=== PATIENT | male | born 1945 | race Caucasian/White ===

== ENCOUNTER 2019-01-04 09:12 | Outpatient (CLI) | payer MEDICARE, OTHER ==
--- NOTE | 2019-01-04 16:36 | Nuclear Medicine Report ---
Reason: EXERTIONAL FATIGUE Procedure Date: 01/04/2019 Accession Number: [id number] / [id number] Procedure: NM - Myocardial Perfusion STR/RST CPT Code: Final Report FULL RESULT: EXAM: MYOCARDIAL PERFUSION STRESS AND REST EXAM DATE: 01/04/2019 03:58 PM. CLINICAL HISTORY: EXERTIONAL FATIGUE. COMPARISON: None. TECHNIQUE: Patient given 9.8 mCi technetium 99m sestamibi IV for the rest portion of the study. Non-gated cardiac SPECT scintigraphy performed with multiplanar reformats. After an appropriate delay, patient exercised on a Fish treadmill protocol for 6 minutes 49 seconds, achieving 86% of maximum predicted heart rate. Near peak stress, patient given 43.3 mCi technetium 99m sestamibi IV. Cardiac gated SPECT scintigraphy of the heart performed with multiplanar reformats, wall motion analysis, and left ventricular ejection fraction estimation. FINDINGS: There is uniform activity in left ventricular myocardium on stress and rest. No fixed or reversible stress related perfusion defects. Wall motion is uniform. Left ventricular ejection fraction estimated at 92%. IMPRESSION: 1. No sonographic evidence of inducible ischemia or infarct. 2. Wall motion and a farm. 3. Left ventricular ejection fraction estimated at 92%. RADIA
--- NOTE | 2019-01-04 16:59 | CARDIAC PROCEDURE NOTE ---
DATE OF SERVICE: 01/04/2019 Physician: Kay Madrigal MD, [facility] INDICATION: Exertional fatigue. CARDIAC RISK FACTORS: Male gender, advanced age, ex-smoker who quit 30 years ago, hyperlipidemia, hypertension. PROCEDURE: After signing informed consent, the patient underwent a Fish- protocol treadmill stress test with nuclear myocardial perfusion imaging. RESTING HEART RATE: 69. PEAK HEART RATE: 128 (86% predicted maximum heart rate for age). RESTING BLOOD PRESSURE: 129/82. PEAK BLOOD PRESSURE: 172/70. The patient exercised for 4 minutes and 10 seconds on a Fish-protocol treadmill stress test. He achieved a peak heart rate of 128 (86% PMHR) and 6 METS. The patient developed shortness of breath at stage 1 and it was "severe shortness of breath" at peak. He had no chest pain. Oxygen saturation remained 96-97% throughout the entire test on room air. The patient's respiratory status improved after approximately 2-1/2 minutes of recovery. RESTING EKG: Normal sinus rhythm, early R/S transition. EKG AT PEAK: New right axis deviation develops and there is loss of early R/S transition, and he now has a normal R-wave progression. No ST-segment depressions or T-wave changes are seen. SUMMARY 1. Abnormal resting EKG. 2. No ST-segment or T-wave changes are seen at a good level of stress. 3. The patient is very symptomatic with respect to dyspnea. 4. Nuclear images reported separately. 5. This patient's cardiac risk factor based on EKG alone: Moderate. cc: JACINTO Henriquez TD: 01/04/2019 16:26 [facility]
== END 2019-01-04 09:13 | disposition home or self-care (01) ==
LOC: DI 09:12
PROVIDERS: ATTEND Registered Nurse
DX: R53.83 Other fatigue (principal); R94.31 Abnormal electrocardiogram [ECG] [EKG]; R06.00 Dyspnea, unspecified; E78.5 Hyperlipidemia, unspecified; Z87.891 Personal history of nicotine dependence
CPT/HCPCS: 78452; 93017; A9500

== ENCOUNTER 2020-04-04 11:23 | Emergency (ER) | payer MEDICARE, OTHER ==
[2020-04-04 13:18] VITALS: BP 141/72
--- NOTE | 2020-04-04 23:37 | ED Physician Documentation ---
History of Present Illness - Stated complaint Stated Complaint: RT ANKLE PX - Chief complaint Chief Complaint: Ext Problem - History obtained from History obtained from: Patient - Additonal information Additional information: 74ym with pmh osteoporosis p/w fall from standing, tripping over some equipment while working outdoors today. patient had sudden onset pain in his R ankle, constant, throbbing, moderate severity, worse with weight bearing, a/w progressive discoloration and swelling. he is able to weight bear with difficulty at present. denies other injury. Review of Systems Skin: denies: Lesions Musculoskeletal: reports: Extremity pain, Joint pain Neurologic: denies: Focal weakness, Numbness PD PAST MEDICAL HISTORY - Past Medical History Past Medical History: Yes Cardiovascular: High cholesterol, Atrial fibrillation GI: GERD : Benign prostate hypertrophy - Past Surgical History Past Surgical History: No - Present Medications Home Medications: Ambulatory Orders Medication Instructions Recorded Confirmed diltiaZEM CD [Cardizem Cd] 180 mg PO DAILY 04/04/20 04/04/20 - Allergies Allergies/Adverse Reactions: Allergies Allergy/AdvReac Type Severity Reaction Status Date / Time No Known Drug Allergies Allergy Verified 04/04/20 11:31 - Social History Does the pt smoke?: No Smoking Status: Never smoker Does the pt drink ETOH?: Yes Does the pt have substance abuse?: No Substance Use and Type: Marijuana - Immunizations Immunizations are current?: Yes - POLST Patient has POLST: No PD ED PE NORMAL - Vitals Vital signs reviewed: Yes - General General: Alert and oriented X 3, No acute distress, Well developed/nourished - Derm Derm: Normal color, Warm and dry, Other (mild ecchymosis R ankle) - Extremities Extremities: Other (R lateral mall ttp. R ankle visibly swollen with ecchymosis to lateral aspect. tender with rom. 2+ DP and pt pulses. normal sensation and cap refill) - Neuro Neuro: Alert and oriented X 3 Results - Vitals Vitals: Vital Signs - 24 hr 04/04/20 04/04/20 11:26 13:17 Temperature 36.8 C 36.5 C Heart Rate 77 75 Respiratory 17 19 Rate Blood Pressure 142/78 H 141/72 H O2 Saturation 99 100 Oxygen O2 Source Room air PD MEDICAL DECISION MAKING - ED course ED course: 74yM p/w nondisplaced distal fibula fx. crutches, posterior splint and sling placed and nonweight bearing/conservative management advised. patient will f./u with ortho in 1 week. strict return precautions given. Departure - Departure Disposition: 01 Home, Self Care Clinical Impression: Fracture of distal fibula Condition: Good Instructions: Ankle Fx, ED RICE Follow-Up: Abdirashid Molina MD [Provider Admit Priv/Credential] - Comments: you were seen in the emergency department for a right distal tibia fracture that is nondisplaced. This means you broke your right ankle on the outside bone but it does not look to be out of place. You should use crutches and keep your splint dry and elevated until you follow-up with orthopedics next week. Return to the emergency department if you have worsening pain, numbness, weakness, or other concerning symptoms. Discharge Date/Time: 04/04/20 13:19
== END 2020-04-04 13:19 | disposition home or self-care (01) ==
LOC: ED 11:23
DX: S82.831A Other fracture of upper and lower end of right fibula, initial encounter for closed fracture (principal); W01.0XXA Fall on same level from slipping, tripping and stumbling without subsequent striking against object, initial encounter; Y92.007 Garden or yard of unspecified non-institutional (private) residence as the place of occurrence of the external cause; M81.0 Age-related osteoporosis without current pathological fracture
CPT/HCPCS: 99283

== ENCOUNTER 2021-07-05 17:09 | Emergency (ER) | payer OTHER ==
[2021-07-05 17:17] VITALS: BP 100/61
--- OUTSIDE RECORDS SUMMARY | 2021-07-05 17:30 | EXTERNAL MEDICAL SUMMARY RPT | Continuity of Care Document ---
:1945 Author Organization [facility] Address [address] [phone] Phone Allergies No information. Encounters No information. Medications No information. Problems date description facility [id number] Fever (76 Years Old Or >) [employer] Results No information.
--- NOTE | 2021-07-05 17:50 | ED Physician Documentation ---
History of Present Illness - Stated complaint Stated Complaint: CATH ISSUE - Chief complaint Chief Complaint: General - History obtained from History obtained from: Patient - History of Present Illness Timing: Today Pain level max: 0 Pain level now: 0 - Additonal information Additional information: Patient is a 76-year-old male who presents to the emergency department stating that his urine is draining around his catheter. The Jurado catheter was placed yesterday after a bladder biopsy. No abdominal pain. No nausea or vomiting. No blood that he has noticed. Nothing makes it better or worse Review of Systems Constitutional: denies: Fever, Chills GI: denies: Vomiting, Diarrhea Skin: denies: Rash Musculoskeletal: denies: Neck pain, Back pain PD PAST MEDICAL HISTORY - Past Medical History Cardiovascular: High cholesterol, Atrial fibrillation GI: GERD : Benign prostate hypertrophy - Past Surgical History Past Surgical History: No - Present Medications Home Medications: Ambulatory Orders Medication Instructions Recorded Confirmed diltiaZEM CD [Cardizem Cd] 180 mg PO DAILY 04/04/20 07/05/21 - Allergies Allergies/Adverse Reactions: Allergies Allergy/AdvReac Type Severity Reaction Status Date / Time No Known Drug Allergies Allergy Verified 07/05/21 17:17 - Social History Does the pt smoke?: No Smoking Status: Never smoker Does the pt drink ETOH?: Yes Does the pt have substance abuse?: No - Immunizations Immunizations are current?: Yes - POLST Patient has POLST: No PD ED PE NORMAL - Vitals Vital signs reviewed: Yes - General General: Alert and oriented X 3, No acute distress - Cardiac Cardiac: RRR - Respiratory Respiratory: No respiratory distress, Clear bilaterally - Abdomen Abdomen: Soft, Non tender, Non distended - Derm Derm: Warm and dry - Neuro Neuro: Alert and oriented X 3 - Psych Psych: Normal mood, Normal affect Results - Vitals Vitals: Vital Signs - 24 hr 07/05/21 17:11 Temperature 36.4 C L Heart Rate 71 Respiratory 16 Rate Blood Pressure 100/61 O2 Saturation 96 Oxygen O2 Source Room air PD MEDICAL DECISION MAKING - ED course Complexity details: reviewed results, re-evaluated patient, considered differential, d/w patient ED course: The balloon on the Jurado catheter was deflated, there is only approximately 8 cc of fluid in the balloon. This was inflated to the full 10 cc. The catheter is draining urine without any difficulty. Bedside ultrasound reveals a completely decompressed bladder. The patient ambulated in the emergency department and there is no further leaking. We will leave the catheter in place. There is no evidence of blood clots. Patient counseled regarding signs and symptoms for which I believe and urgent re-evaluation would be necessary. Patient with good understanding of and agreement to plan and is comfortable going home at this time This document was made in part using voice recognition software. While efforts are made to proofread this document, sound alike and grammatical errors may occur. Departure - Departure Disposition: 01 Home, Self Care Clinical Impression: Jurado catheter problem Qualifiers: Encounter type: initial encounter Qualified Code(s): T83.9XXA - Unspecified complication of genitourinary prosthetic device, implant and graft, initial encounter Condition: Good Instructions: ED Catheter Care Jurado Follow-Up: AKOSUA MARQUEZ [Primary Care Provider] - As Needed Comments: Your Jurado catheter was readjusted and the balloon was reinflated. There does not appear to be any more leaking of urine. We will have you follow-up with your doctor for further care. Return if you worsen. There is no significant urine in your bladder at this time either
== END 2021-07-05 17:50 | disposition home or self-care (01) ==
LOC: ED 17:09
DX: T83.098A Other mechanical complication of other urinary catheter, initial encounter (principal); Y84.8 Other medical procedures as the cause of abnormal reaction of the patient, or of later complication, without mention of misadventure at the time of the procedure; I48.91 Unspecified atrial fibrillation
CPT/HCPCS: 99281; 99282